=== PATIENT | male | born 1990 | race American Indian/Alaskan Native ===

== ENCOUNTER 2025-03-30 12:35 | Emergency (ER) | payer OTHER ==
[~2025-03-30] VITALS: Ht 177.8 cm; Wt 72.6 kg
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
[2025-03-30 14:49] VITALS: BP 127/79; PULSE 70; RESP 16; TEMP 97.9; O2SAT 99
== END 2025-03-30 14:50 | disposition home or self-care (01) ==
LOC: EDH 12:35
DX: T59.811A Toxic effect of smoke, accidental (unintentional), initial encounter (principal); T14.90XA Injury, unspecified, initial encounter; Y99.8 Other external cause status
CPT/HCPCS: 36415; 82375; 99283